=== PATIENT | male | born 1955 | race Caucasian/White ===

== ENCOUNTER → 2020-06-10 11:26 | Outpatient (CLI) | payer OTHER, SELFPAY ==
[2020-06-12 08:21] LABS: COVID19 Sendout Not Detected (Not Detect)
== END ==
PROVIDERS: Visit Provider Physician Assistant
DX: Z11.59 Encounter for screening for other viral diseases (principal)
CPT/HCPCS: 87635

== ENCOUNTER → 2020-06-13 10:50 | Outpatient (CLI) | payer OTHER, SELFPAY ==
--- NOTE | 2020-06-19 08:22 | PM.PFT.1 ---
Pulmonary Function Test Referral & Results Date Patient Seen: 06/13/20 Requesting provider: Iwona Guevara Results: The spirometry demonstrates an FVC of 3.19 L which is 81% of predicted. The FEV1 was measured at 2.10 L which is 72% of predicted. The FEV1/FVC ratio was 66 which is 88% of predicted. Following the administration of bronchodilator there was a 26% improvement in FEF 25-75% Lung volumes show an SVC of 3.09 L which is 76% of predicted. The diffusing capacity was measured at 14.34 which is 53% go to end of sentence my no hemoglobin of predicted. The maximum voluntary ventilation was reduced Interpretation: This study demonstrates perhaps mild obstructive lung disease based on reduction FEV1 and FEV1/FVC ratio. There is evidence of minimal improvement following bronchodilator primarily small airways based on improvement in FEF 25-75% as above There is also evidence of mild restrictive lung disease based on reduction SVC There is also significant reduction in diffusing capacity suggesting significant disease at the capillary alveolar level Clinical correlation suggested
== END ==
PROVIDERS: PCP Student in an Organized Health Care Education/Training Program; Referring Provider Student in an Organized Health Care Education/Training Program; Visit Provider Student in an Organized Health Care Education/Training Program
DX: J44.9 Chronic obstructive pulmonary disease, unspecified (principal); F17.210 Nicotine dependence, cigarettes, uncomplicated
CPT/HCPCS: 94060; 94726; 94729

== ENCOUNTER → 2020-06-18 13:23 | Outpatient (CLI) | payer OTHER, SELFPAY ==
--- NOTE | 2020-06-18 | DI.RAD.S_ITS ---
PROCEDURE: XR CHEST 2V INDICATIONS: Chronic obstructive pulmonary disease, unspecified TECHNIQUE: 2 views of the chest were acquired. COMPARISON: [facility], , CHEST 1 VIEW, 03/13/2017, 17:38. FINDINGS: Surgical changes and devices: None. Lungs and pleura: Lungs are clear. No pleural effusions or pneumothorax. Mediastinum: Mediastinal contours are normal. Heart size is normal. Bones and chest wall: No suspicious bony abnormalities. Soft tissues appear unremarkable. IMPRESSION: Normal for age except for large lung volumes, no pneumonia seen, no neoplasm identified. Dictated by: Chintan Chavarria M.D. on 06/18/2020 at 14:35 Approved by: Chintan Chavarria M.D. on 06/18/2020 at 14:35
== END ==
PROVIDERS: PCP Student in an Organized Health Care Education/Training Program; Referring Provider Student in an Organized Health Care Education/Training Program; Visit Provider Student in an Organized Health Care Education/Training Program
DX: J44.9 Chronic obstructive pulmonary disease, unspecified (principal)
CPT/HCPCS: 71046

== ENCOUNTER 2022-11-07 11:46 | Emergency (ER) | payer OTHER, SELFPAY ==
[2022-11-07] VITALS (60 sets, daily range): BP systolic 53–177; BP diastolic 49–99; PULSE 62–85; RESP 9–25; TEMP 36.9; O2SAT 91–100; BMI 35.9
--- NOTE | 2022-11-07 11:57 | DI.CT.S_ITS ---
PROCEDURE: CT ANGIO CHEST ABDOMEN PELVIS INDICATIONS: Hypotensive, known abdominal aortic aneurysm right leg pain TECHNIQUE: Precontrast 5 mm thick sections acquired from the lung apices to the iliac crests. After the administration of intravenous contrast, 2.5 mm thick sections again acquired from the lung apices to the iliac crests. Maximum intensity projection (MIP) oblique sagittal and coronal reformats were then acquired. For radiation dose reduction, the following was used: automated exposure control. COMPARISON: [facility], CT, ANGIO ABD PELVIS W/WO CONTRAST (PNL), 09/28/2011, 12:07. FINDINGS: Image quality: Excellent. AORTA: The thoracic aorta is normal in course and caliber. No dissection. No aneurysmal dilatation. Scattered atherosclerotic calcifications are present. There is mild aneurysmal dilatation of the distal abdominal aorta measuring approximately 3.1 cm in diameter. Associated intramural hematomas. No evidence for dissection. Dense atherosclerotic calcifications are seen. Redemonstration of postsurgical changes of prior aorto bi-iliac stent. No extra luminal extravasation of contrast. No periaortic inflammatory changes. Overall, this has decreased in size compared to the prior exam. Celiac trunk and SMA appear patent. Inferior mesenteric artery is not visualized. Bilateral lower lower extremity arteries: Scattered atherosclerotic calcifications of the bilateral common femoral arteries extending through the imaged portions of the leg. 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 There is a surrounding hematoma. This is noted in close proximity to the junction with the distal external iliac artery. There is relatively diminished opacification of the superficial femoral and profunda femoral arteries extending towards the trifurcation. Normal opacification noted for comparison within the left lower extremity arteries. Additionally, there is a small aneurysm measuring approximately 2.5 x 1.8 cm at the junction of the distal left external iliac and common femoral artery. There is superficial subcutaneous soft tissue edema and mild skin thickening of the right lower extremity predominantly at the level of the knees and distally. CHEST: Lungs and pleura: No acute airspace opacities. Upper lobe predominant pulmonary emphysematous changes. Bibasilar atelectasis. No pneumothorax or pleural effusion. No pleural effusions or pneumothorax. Central and peripheral airways are patent and normal in caliber. Mediastinum: Heart size is enlarged. Coronary atherosclerotic vascular calcifications are noted. No pericardial effusion. No mediastinal or hilar adenopathy by size criteria. Central pulmonary arteries are normal in size. Esophagus is normal in caliber. No hiatal hernias. Bones and chest wall: No axillary adenopathy by size criteria. Thyroid gland is unremarkable . No suspicious bony lesions. No vertebral body compression fractures. ABDOMEN: Vasculature: Celiac trunk and mesenteric arteries are patent. Renal arteries are also patent. Solid organs: Liver is normal in size and enhancement. Gallbladder is surgically absent . Biliary system is non dilated. Physiologic dilatation of the common bile duct post cholecystectomy. No pancreatic ductal dilatation. Pancreas enhances normally. Spleen is normal in size and enhancement. No adrenal nodules. Both kidneys are normal in size and enhancement, without hydronephrosis. Bilateral renal hypodensities likely representing cysts. Peritoneum and bowel: No free fluid or air. Bowel loops are normal in caliber and wall thickness. Colonic diverticulosis without acute diverticulitis. Nodes and vessels: No retroperitoneal or mesenteric adenopathy by size criteria. Inferior vena cava is normal in morphology. Miscellaneous: There is a bowel containing right ventral abdominal wall hernia without evidence for obstruction proximally. This is seen at the level of the mid abdomen. PELVIS: Genitourinary: Bladder wall thickness is normal. Miscellaneous: No inguinal hernias or adenopathy. No ventral hernias. Bones: No acute vertebral body compression fractures. Multilevel spondylitic changes throughout the imaged spine. No suspicious osseous lesions. IMPRESSION: 1. 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 There is opacification of the common femoral, superficial femoral, profundus femoral and popliteal arteries as well as the trifurcation. This measures approximately 5.0 x 5.4 x 7.4 cm. 2. 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 This measures approximately 2.5 x 1.8 cm. This has increased in size compared to 2012. 3. Mild aneurysmal dilatation of the distal abdominal aorta with stable postsurgical repair of aorto bi-iliac graft. No evidence for dissection. 4. Other chronic findings as described above. Findings were discussed with Dr. Sotelo at 1310 hrs Dictated by: Cyril Valverde M.D. on 11/07/2022 at 12:46 Approved by: Cyril Valverde M.D. on 11/07/2022 at 13:12
[2022-11-07] MEDS: SODIUM CHLORIDE 0.9% 1,000 ML 999 ML IV (12:00)
[2022-11-07] MEDS: HYDROMORPHONE 0.5 MG INJ IV ×2 (12:14→16:05)
[2022-11-07] MEDS: SODIUM CHLORIDE 0.9% 1,000 ML 1000 ML IV (12:15)
[2022-11-07 12:16] LABS: Alanine Aminotransferase 28 IU/L (<50); Albumin 3.8 g/dL (3.5-5.0); Albumin Globulin Ratio 1.2 (1.0-2.8); Alkaline Phosphatase 105 U/L (38-126); Aspartate Aminotransferase 26 IU/L (17-59); BUN Creatinine Ratio 12.2 (6-22); Bilirubin Total 0.4 mg/dL (0.2-1.3); Blood Urea Nitrogen 21 mg/dL (9-20); Calcium 9.2 mg/dL (8.4-10.2); Carbon Dioxide 27 mmol/L (22-32); Chloride 102 mmol/L (98-107); Creatine Kinase 79 U/L (55-170); Estimated Glomerular Filt Rate 43 mL/min (>60); Globulin 3.1 g/dL (1.7-4.1); Glucose 122 mg/dL (80-110); HEMOLYSIS < 15 (0-50); Lipase 81 U/L (23-300); Sodium 138 mmol/L (137-145); Total Protein 6.9 g/dL (6.3-8.2)
[2022-11-07 12:26] LABS: Add Manual Diff / Slide Review NO; Basophils Absolute Auto 100 /uL (0-100); Basophils Percent Auto 1.1 % (0-2); Eosinophils Absolute Auto 400 /uL (0-450); Hematocrit 42.4 % (41-53); Hemoglobin 14.4 g/dL (13.5-17.5); Lymphocytes Absolute Auto 3700 /uL (1100-4500); Mean Corpuscular HGB Conc 34.1 % (30-36); Mean Corpuscular Hemoglobin 31.3 PG (26-34); Mean Corpuscular Volume 91.9 fL (80-100); Monocytes Absolute Auto 1000 /uL (0-900); Monocytes Percent Auto 9.4 % (3-14); Neutrophils Absolute Auto 5300 /uL (1500-7000); Neutrophils Percent Auto 50.5 % (50-75); Platelet Count 229 X10^3/uL (150-400); Red Blood Cell Count 4.61 X10^6/uL (4.5-5.9); Red Cell Distribution Width 15.8 % (11.6-14.8); Troponin I 0.019 ng/mL (0.01-0.034); White Blood Cell Count 10.6 X10^3/uL (4.5-11.0)
--- NOTE | 2022-11-07 12:28 | ED_ITS ---
HPI - Extremity Problem General Chief complaint: Extremity Problem,Nontraumatic Stated complaint: R groin pain / hypotension Time Seen by Provider: 11/07/22 11:56 History of Present Illness HPI Narrative: Patient is a 67-year-old male history coronary artery disease with stents, hypertension hyperlipidemia, COPD, aortobifemoral bypass, crescendo angina, paroxysmal atrial fibrillation on Pradaxa, cardiomyopathy presents today with severe right-sided leg pain after working in the yard. He said he was working in the yard with a vibrating rototill, when into get something to drink had sudden onset severe right-sided leg pain had to sit down. He got very lightheaded diaphoretic EMS reports an initial blood pressure in the 40s. He denies any chest pain or palpitations. Blood pressure improved when he laid down he continues to have severe right-sided groin pain. Patient can not remember if he took his medications this morning or not he did not want to double up. It is unclear when he last took Pradaxa just presumed that he took it last night Related Data Home Medications Medication Instructions Recorded Confirmed clopidogrel 75 mg tablet 75 mg PO DAILY 11/07/22 11/07/22 dabigatran etexilate 150 mg capsule 150 mg PO BID 11/07/22 11/07/22 esomeprazole magnesium 20 mg 20 mg PO DAILY 11/07/22 11/07/22 tablet,delayed release metoprolol succinate 25 mg 25 mg PO DAILY 11/07/22 11/07/22 tablet,extended release 24 hr nitroglycerin 0.4 mg sublingual 0.4 mg sublingual PRN PRN Chest 11/07/22 11/07/22 tablet (Nitrostat) Pain rosuvastatin 40 mg tablet 40 mg PO DAILY 11/07/22 11/07/22 tamsulosin 0.4 mg capsule 0.4 mg PO DAILY 11/07/22 11/07/22 tiotropium 2.5 mcg-olodaterol 2.5 1 inh inhalation WEEKLY 11/07/22 11/07/22 mcg/actuation mist for inhalation (Stiolto Respimat) torsemide 20 mg tablet 20 mg PO DAILY 11/07/22 11/07/22 Allergies Allergy/AdvReac Type Severity Reaction Status Date / Time oxycodone [OXYCODONE] AdvReac Severe VOMITED Verified 11/07/22 13:44 BLACK STUFF Review of Systems Review of Systems ROS Unobtainable: All systems reviewed & are unremarkable except as noted in HPI and below Exam Initial Vital Signs Initial Vital Signs: Vital Signs Blood Pressure 133/91 H 11/07/22 11:49 GENERAL: Alert pleasant 67-year-old male slightly pale appears uncomfortable HEENT: Head atraumatic,EOMI, pupils reactive, face symmetric, [moist] mucous membranes CARDIOVASCULAR: Regular rate and rhythm without murmurs, rubs or gallops. RESPIRATORY: Breath sounds equal bilaterally, no wheezes rales or rhonchi. ABDOMEN: Soft, nontender. Normoactive bowel sounds all 4 quadrants. No guarding or rebound. EXTREMITIES: Normal range of motion, no clubbing or edema. Neurovascularly intact Pulsatile mass found in right femoral area, unable to palpate or Doppler right distal pedal pulse Left leg is within normal limits NEUROLOGICAL: Alert and oriented x4.Normal gait and speech. SKIN: Warm, dry, no laceration, no petechiae, no rashes or lesions. Course Orders Ordered: ED Orders 11/07/22 11:48 Complete Blood Count AUTO DIFF Stat Comprehensive Metabolic Panel Stat Lactate (Lactic Acid) Stat Lipase Stat Troponin & CK Cardiac Panel Stat 11/07/22 11:57 CT angio chest abdomen pelvis Stat 11/07/22 12:06 EKG-12 Lead Stat 11/07/22 12:30 Packed Cells Stat Type and Screen Stat 11/07/22 12:32 COVID19 -Nasal RAPID Stat 11/07/22 14:15 Hemoglobin and Hematocrit Stat Discontinued Medications Hydromorphone HCl (Hydromorphone 0.5 Mg Inj) 0.5 mg IV NOW ONE Stop: 11/07/22 12:11 Last Admin: 11/07/22 12:14 Dose: 0.5 mg Documented By: CTS Hydromorphone HCl (Hydromorphone 1 Mg Inj) 1 mg IV NOW ONE Stop: 11/07/22 13:24 Last Admin: 11/07/22 13:33 Dose: 1 mg Documented By: CTS Hydromorphone HCl (Hydromorphone 1 Mg Inj) 1 mg IV NOW ONE Stop: 11/07/22 14:53 Last Admin: 11/07/22 15:03 Dose: 1 mg Documented By: CTS Hydromorphone HCl (Hydromorphone 0.5 Mg Inj) 0.5 mg IV NOW ONE Stop: 11/07/22 16:03 Last Admin: 11/07/22 16:05 Dose: 0.5 mg Documented By: YOLANDA Sodium Chloride (Normal Saline 0.9%) 1,000 mls @ 150 mls/hr IV CONT RICK Last Infusion: 11/07/22 13:02 Dose: 0 mls/hr Documented By: Admin: 11/07/22 12:00 Dose: 999 mls/hr Documented By: YOLANDA Sodium Chloride (Normal Saline 0.9%) 1,000 mls @ 1,000 mls/hr IV BOLUS ONE Stop: 11/07/22 12:59 Last Infusion: 11/07/22 13:01 Dose: 0 mls/hr Documented By: Admin: 11/07/22 12:15 Dose: 1,000 mls/hr Documented By: YOLANDA Vital Signs Vital signs: Vital Signs - 8 hr 11/07/22 12:36 11/07/22 11:49 11/07/22 11:50 Temperature 98.4 F Pulse Rate 68 85 Respiratory Rate 16 16 Blood Pressure 53/49 L 133/91 H Pulse Oximetry 99 100 Oxygen Delivery Method Room Air 11/07/22 11:55 11/07/22 12:00 11/07/22 12:05 Temperature Pulse Rate 81 82 79 Respiratory Rate 14 15 19 Blood Pressure Pulse Oximetry 99 100 Oxygen Delivery Method 11/07/22 12:10 11/07/22 12:15 11/07/22 12:17 Temperature Pulse Rate 79 81 Respiratory Rate 25 H 18 Blood Pressure 80/51 L Pulse Oximetry 100 100 Oxygen Delivery Method 11/07/22 12:29 11/07/22 12:30 11/07/22 12:31 Temperature Pulse Rate 67 66 67 Respiratory Rate 17 12 12 Blood Pressure Pulse Oximetry 100 100 100 Oxygen Delivery Method 11/07/22 12:31 11/07/22 12:35 11/07/22 12:35 Temperature Pulse Rate 67 Respiratory Rate 12 Blood Pressure 140/84 148/83 H Pulse Oximetry 100 Oxygen Delivery Method 11/07/22 12:40 11/07/22 12:40 11/07/22 12:45 Temperature Pulse Rate 70 Respiratory Rate 13 Blood Pressure 146/69 H 152/84 H Pulse Oximetry 100 Oxygen Delivery Method 11/07/22 12:45 11/07/22 12:50 11/07/22 12:51 Temperature Pulse Rate 71 72 72 Respiratory Rate 15 19 18 Blood Pressure Pulse Oximetry 100 98 97 Oxygen Delivery Method 11/07/22 12:51 11/07/22 12:55 11/07/22 12:55 Temperature Pulse Rate 73 Respiratory Rate 18 Blood Pressure 153/99 H 165/84 H Pulse Oximetry 98 Oxygen Delivery Method 11/07/22 13:00 11/07/22 13:01 11/07/22 13:01 Temperature Pulse Rate 65 65 Respiratory Rate 24 15 Blood Pressure 159/97 H Pulse Oximetry 98 98 Oxygen Delivery Method 11/07/22 13:05 11/07/22 13:05 11/07/22 13:10 Temperature Pulse Rate 64 64 Respiratory Rate 11 L 16 Blood Pressure 177/79 H Pulse Oximetry 97 99 Oxygen Delivery Method 11/07/22 13:11 11/07/22 13:11 11/07/22 13:15 Temperature Pulse Rate 62 63 Respiratory Rate 16 11 L Blood Pressure 149/64 H Pulse Oximetry 97 96 Oxygen Delivery Method 11/07/22 13:16 11/07/22 13:16 11/07/22 13:20 Temperature Pulse Rate 63 Respiratory Rate 11 L Blood Pressure 169/75 H 154/79 H Pulse Oximetry 94 Oxygen Delivery Method 11/07/22 13:20 11/07/22 13:25 11/07/22 13:25 Temperature Pulse Rate 70 66 Respiratory Rate 16 12 Blood Pressure 151/73 H Pulse Oximetry 95 97 Oxygen Delivery Method 11/07/22 13:30 11/07/22 13:31 11/07/22 13:31 Temperature Pulse Rate 66 68 Respiratory Rate 10 L 12 Blood Pressure 166/77 H Pulse Oximetry 96 95 Oxygen Delivery Method 11/07/22 13:35 11/07/22 13:35 11/07/22 13:40 Temperature Pulse Rate 65 68 Respiratory Rate 9 L 10 L Blood Pressure 133/60 Pulse Oximetry 92 92 Oxygen Delivery Method Room Air 11/07/22 13:40 11/07/22 13:45 11/07/22 13:45 Temperature Pulse Rate 63 Respiratory Rate 11 L Blood Pressure 129/69 134/70 Pulse Oximetry 91 Oxygen Delivery Method 11/07/22 13:50 11/07/22 13:50 11/07/22 13:55 Temperature Pulse Rate 69 66 Respiratory Rate 10 L 9 L Blood Pressure 138/67 Pulse Oximetry 96 95 Oxygen Delivery Method 11/07/22 13:55 11/07/22 14:00 11/07/22 14:00 Temperature Pulse Rate 64 Respiratory Rate 10 L Blood Pressure 149/74 H 140/66 Pulse Oximetry 91 Oxygen Delivery Method 11/07/22 14:05 11/07/22 14:05 11/07/22 14:10 Temperature Pulse Rate 66 Respiratory Rate 11 L Blood Pressure 149/71 H 150/76 H Pulse Oximetry 95 Oxygen Delivery Method 11/07/22 14:10 11/07/22 14:15 11/07/22 14:15 Temperature Pulse Rate 73 72 Respiratory Rate 13 13 Blood Pressure 150/73 H Pulse Oximetry 97 97 Oxygen Delivery Method Room Air 11/07/22 14:20 11/07/22 14:20 11/07/22 14:25 Temperature Pulse Rate 71 Respiratory Rate 14 Blood Pressure 139/78 133/67 Pulse Oximetry 97 Oxygen Delivery Method 11/07/22 14:25 11/07/22 14:30 11/07/22 14:30 Temperature Pulse Rate 69 71 Respiratory Rate 12 16 Blood Pressure 137/69 Pulse Oximetry 95 99 Oxygen Delivery Method 11/07/22 14:35 11/07/22 14:36 11/07/22 14:36 Temperature Pulse Rate 69 67 Respiratory Rate 12 17 Blood Pressure 164/81 H Pulse Oximetry 98 97 Oxygen Delivery Method 11/07/22 14:40 11/07/22 14:40 11/07/22 14:45 Temperature Pulse Rate 70 Respiratory Rate 14 Blood Pressure 157/75 H 152/74 H Pulse Oximetry 98 Oxygen Delivery Method 11/07/22 14:45 11/07/22 14:50 11/07/22 14:50 Temperature Pulse Rate 69 70 Respiratory Rate 13 18 Blood Pressure 156/77 H Pulse Oximetry 98 98 Oxygen Delivery Method Room Air 11/07/22 14:55 11/07/22 14:55 11/07/22 15:00 Temperature Pulse Rate 71 Respiratory Rate 18 Blood Pressure 158/86 H 133/64 Pulse Oximetry 98 Oxygen Delivery Method 11/07/22 15:00 11/07/22 15:05 11/07/22 15:05 Temperature Pulse Rate 76 78 Respiratory Rate 15 12 Blood Pressure 133/71 Pulse Oximetry 99 99 Oxygen Delivery Method 11/07/22 15:10 11/07/22 15:10 11/07/22 15:15 Temperature Pulse Rate 67 Respiratory Rate 13 Blood Pressure 125/69 126/70 Pulse Oximetry 95 Oxygen Delivery Method 11/07/22 15:15 11/07/22 15:20 11/07/22 15:20 Temperature Pulse Rate 73 70 Respiratory Rate 13 13 Blood Pressure 125/76 Pulse Oximetry 96 95 Oxygen Delivery Method 11/07/22 15:25 11/07/22 15:25 11/07/22 15:30 Temperature Pulse Rate 79 Respiratory Rate 15 Blood Pressure 113/68 111/65 Pulse Oximetry 97 Oxygen Delivery Method 11/07/22 15:30 11/07/22 15:35 11/07/22 15:35 Temperature Pulse Rate 81 83 Respiratory Rate 23 14 Blood Pressure 95/64 Pulse Oximetry 97 99 Oxygen Delivery Method 11/07/22 15:40 11/07/22 15:40 11/07/22 15:45 Temperature Pulse Rate 78 Respiratory Rate 14 Blood Pressure 105/66 110/68 Pulse Oximetry 98 Oxygen Delivery Method 11/07/22 15:45 11/07/22 15:50 11/07/22 15:50 Temperature Pulse Rate 81 75 Respiratory Rate 17 11 L Blood Pressure 112/67 Pulse Oximetry 98 97 Oxygen Delivery Method Room Air 11/07/22 15:53 11/07/22 15:55 Temperature Pulse Rate 78 Respiratory Rate 16 Blood Pressure 114/70 Pulse Oximetry Oxygen Delivery Method MDM - Extremity (Nontraumatic) Lab Data 11/07/22 14:15 11/07/22 11:48 Labs: Lab Results 11/07/22 11/07/22 11/07/22 Range/Units 11:48 11:48 11:48 WBC 10.6 (4.5-11.0) X10^3/uL RBC 4.61 (4.5-5.9) X10^6/uL Hgb 14.4 (13.5-17.5) g/dL Hct 42.4 (41-53) % MCV 91.9 (80-100) fL MCH 31.3 (26-34) PG MCHC 34.1 (30-36) % RDW 15.8 H (11.6-14.8) % Plt Count 229 (150-400) X10^3/uL Neut % (Auto) 50.5 (50-75) % Lymph % (Auto) 35.0 (25-40) % [place] % (Auto) 9.4 (3-14) % Eos % (Auto) 4.0 (2-4) % Baso % (Auto) 1.1 (0-2) % Neut # (Auto) 5300 (3208-2997) /uL Lymph # (Auto) 3700 (5384-4591) /uL [place] # (Auto) 1000 H (0-900) /uL Eos # (Auto) 400 (0-450) /uL Baso # (Auto) 100 (0-100) /uL Sodium 138 (137-145) mmol/L Potassium 4.0 (3.4-5.1) mmol/L Chloride 102 (98-107) mmol/L Carbon Dioxide 27 (22-32) mmol/L BUN 21 H (9-20) mg/dL Creatinine 1.72 H (0.66-1.25) mg/dL Estimated GFR 43 L (>60) mL/min BUN/Creatinine Ratio 12.2 (6-22) Glucose 122 H (80-110) mg/dL Lactate 4.5 H* (0.7-2.1) mmol/L Calcium 9.2 (8.4-10.2) mg/dL Total Bilirubin 0.4 (0.2-1.3) mg/dL AST 26 (17-59) IU/L ALT 28 (<50) IU/L Alkaline Phosphatase 105 (38-126) U/L Total Creatine Kinase 79 (55-170) U/L CK-MB (CK-2) TNP CK-MB (CK-2) Rel Index TNP Troponin I 0.019 (0.01-0.034) ng/mL Total Protein 6.9 (6.3-8.2) g/dL Albumin 3.8 (3.5-5.0) g/dL Globulin 3.1 (1.7-4.1) g/dL Albumin/Globulin Ratio 1.2 (1.0-2.8) Lipase 81 (23-300) U/L SARS-CoV-2 (PCR) (Negative) Blood Type Antibody Screen Crossmatch 11/07/22 11/07/22 11/07/22 Range/Units 12:30 12:32 14:15 WBC (4.5-11.0) X10^3/uL RBC (4.5-5.9) X10^6/uL Hgb (13.5-17.5) g/dL Hct (41-53) % MCV (80-100) fL MCH (26-34) PG MCHC (30-36) % RDW (11.6-14.8) % Plt Count (150-400) X10^3/uL Neut % (Auto) (50-75) % Lymph % (Auto) (25-40) % Berrien % (Auto) (3-14) % Eos % (Auto) (2-4) % Baso % (Auto) (0-2) % Neut # (Auto) (6864-8053) /uL Lymph # (Auto) (9575-4900) /uL Berrien # (Auto) (0-900) /uL Eos # (Auto) (0-450) /uL Baso # (Auto) (0-100) /uL Sodium (137-145) mmol/L Potassium (3.4-5.1) mmol/L Chloride (98-107) mmol/L Carbon Dioxide (22-32) mmol/L BUN (9-20) mg/dL Creatinine (0.66-1.25) mg/dL Estimated GFR (>60) mL/min BUN/Creatinine Ratio (6-22) Glucose (80-110) mg/dL Lactate 1.4 (0.7-2.1) mmol/L Calcium (8.4-10.2) mg/dL Total Bilirubin (0.2-1.3) mg/dL AST (17-59) IU/L ALT (<50) IU/L Alkaline Phosphatase (38-126) U/L Total Creatine Kinase (55-170) U/L CK-MB (CK-2) CK-MB (CK-2) Rel Index Troponin I (0.01-0.034) ng/mL Total Protein (6.3-8.2) g/dL Albumin (3.5-5.0) g/dL Globulin (1.7-4.1) g/dL Albumin/Globulin Ratio (1.0-2.8) Lipase (23-300) U/L SARS-CoV-2 (PCR) Negative (Negative) Blood Type O Negative Antibody Screen Negative Crossmatch See Detail 04/01/23 Range/Units 14:15 WBC (4.5-11.0) X10^3/uL RBC (4.5-5.9) X10^6/uL Hgb 12.7 L (13.5-17.5) g/dL Hct 37.6 L (41-53) % MCV (80-100) fL MCH (26-34) PG MCHC (30-36) % RDW (11.6-14.8) % Plt Count (150-400) X10^3/uL Neut % (Auto) (50-75) % Lymph % (Auto) (25-40) % Berrien % (Auto) (3-14) % Eos % (Auto) (2-4) % Baso % (Auto) (0-2) % Neut # (Auto) (6121-3424) /uL Lymph # (Auto) (5058-7142) /uL Berrien # (Auto) (0-900) /uL Eos # (Auto) (0-450) /uL Baso # (Auto) (0-100) /uL Sodium (137-145) mmol/L Potassium (3.4-5.1) mmol/L Chloride (98-107) mmol/L Carbon Dioxide (22-32) mmol/L BUN (9-20) mg/dL Creatinine (0.66-1.25) mg/dL Estimated GFR (>60) mL/min BUN/Creatinine Ratio (6-22) Glucose (80-110) mg/dL Lactate (0.7-2.1) mmol/L Calcium (8.4-10.2) mg/dL Total Bilirubin (0.2-1.3) mg/dL AST (17-59) IU/L ALT (<50) IU/L Alkaline Phosphatase (38-126) U/L Total Creatine Kinase (55-170) U/L CK-MB (CK-2) CK-MB (CK-2) Rel Index Troponin I (0.01-0.034) ng/mL Total Protein (6.3-8.2) g/dL Albumin (3.5-5.0) g/dL Globulin (1.7-4.1) g/dL Albumin/Globulin Ratio (1.0-2.8) Lipase (23-300) U/L SARS-CoV-2 (PCR) (Negative) Blood Type Antibody Screen Crossmatch Imaging Data CT scan - chest: Radiologist's Impression: PROCEDURE:? CT ANGIO CHEST ABDOMEN PELVIS ? INDICATIONS:? Hypotensive, known abdominal aortic aneurysm right leg pain ? TECHNIQUE:? Precontrast 5 mm thick sections acquired from the lung apices to the iliac cre sts.? After the administration of intravenous contrast, 2.5 mm thick sections again acquired from the lung apices to the iliac crests.? Maximum intensity projection (MIP) oblique sagittal and coronal reformats were then acquired.? For radiation dose reduction, the following was used:? automated exposure control.? ? COMPARISON:? [facility], CT, ANGIO ABD PELVIS W/WO CONTRAST (PNL), 09/28/2011, 12:07. ? FINDINGS:? Image quality:? Excellent.? ? AORTA:? The thoracic aorta is normal in course and caliber.? No dissection.? No aneurysmal dilatation.? Scattered atherosclerotic calcifications are present. There is mild aneurysmal dilatation of the distal abdominal aorta measuring approximately 3.1 cm in diameter.? Associated intramural hematomas.? No evidence for dissection.? Dense atherosclerotic calcifications are seen.? Redemonstration of postsurgical changes of prior aorto bi-iliac stent.? No extra luminal extravasation of contrast.? No periaortic inflammatory changes.? Overall, this has decreased in size compared to the prior exam.? Celiac trunk and SMA appear patent.? Inferior mesenteric artery is not visualized. ? Bilateral lower lower extremity arteries: ? Scattered atherosclerotic calcifications of the bilateral common femoral arteries extending through the imaged portions of the leg.? There is a large proximal common femoral arterial aneurysm measuring approximately 5.0 x 5.4 cm in axial transverse dimension and approximately 7.4 cm in longitudinal dimension.? There is a surrounding hematoma.? This is noted in close proximity to the junction with the distal exte rnal iliac artery.? There is relatively diminished opacification of the superficial femoral and profunda femoral arteries extending towards the trifurcation.? Normal opacification noted for comparison within the left lower extremity arteries.? Additionally, there is a small aneurysm measuring approximately 2.5 x 1.8 cm at the junction of the distal left external iliac and common femoral artery. ? There is superficial subcutaneous soft tissue edema and mild skin thickening of the right lower extremity predominantly at the level of the knees and distally. ? ? CHEST:? Lungs and pleura:? No acute airspace opacities.? Upper lobe predominant pulmonary emphysematous changes.? Bibasilar atelectasis.? No pneumothorax or pleural effusion.? No pleural effusions or pneumothorax.? Central and peripheral airways are patent and normal in caliber.? ? Mediastinum:? Heart size is enlarged. Coronary atherosclerotic vascular calcifications are noted. ? No pericardial effusion.? No mediastinal or hilar adenopathy by size criteria.? Central pulmonary arteries are normal in size.? Esophagus is normal in caliber.? No hiatal hernias.? ? Bones and chest wall:? No axillary adenopathy by size criteria.? Thyroid gland is unremarkable .? No suspicious bony lesions.? No vertebral body compression fractures.? ? ? ABDOMEN:? Vasculature:? Celiac trunk and mesenteric arteries are patent.? Renal arteries are also patent.? ? Solid organs:? Liver is normal in size and enhancement.? Gallbladder is surgically absent .? Biliary system is non dilated.? Physiologic dilatation of the common bile duct post cholecystectomy.? No pancreatic ductal dilatation.? Pancreas enhances normally.? Spleen is normal in size and enhancement.? No adrenal nodules.? Both kidneys are normal in size and enhancement, without hydronephrosis.? Bilateral renal hypodensities likely representing cysts. ? Peritoneum and bowel:? No free fluid or air.? Bowel loops are normal in caliber and wall thickness.? Colonic diverticulosis without acute diverticulitis. ? Nodes and vessels:? No retroperitoneal or mesenteric adenopathy by size crite néstor.? Inferior vena cava is normal in morphology.? ? Miscellaneous:? There is a bowel containing right ventral abdominal wall hernia without evidence for obstruction proximally.? This is seen at the level of the mid abdomen. ? ? PELVIS:? Genitourinary:? Bladder wall thickness is normal.? ? Miscellaneous:? No inguinal hernias or adenopathy.? No ventral hernias.? ? Bones:? No acute vertebral body compression fractures. Multilevel spondylitic changes throughout the imaged spine.? No suspicious osseous lesions. ? ? IMPRESSION:? ? 1. 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 There is opacification of the common femoral, superficial femoral, profundus femoral and popliteal arteries as well as the trifurcation.? This measures approximately 5.0 x 5.4 x 7.4 cm. ? 2. Small aneurysm of the proximal left common femoral artery near the junction with the distal iliac artery.? This measures approximately 2.5 x 1.8 cm.? This has increased in size compared to 2012. ? 3. Mild aneurysmal dilatation of the distal abdominal aorta with stable postsurgical repair of aorto bi-iliac graft.? No evidence for dissection. ? 4. Other chronic findings as described above. ? Findings were discussed with Dr. Sotelo at 1310 hrs ? Dictated by: Cyril Valverde M.D. on 11/07/2022 at 12:46 ECG Data Interpretation: Normal sinus rhythm rate 80 ND interval 160 QRS 76 QTC 449 significant T-wave inversion noted in V2 V3 without ST elevations or depressions. This is new from previous EKG in 2016. He apparently had stents placed in 2020 at [facility]. MDM Narrative Medical decision making narrative: Patient 67-year-old male with history of coronary artery disease known aneurysm with repair and s presenting today with severe right groin pain. He has a palpable femoral pulsatile mass. Concern for femoral artery aneurysm. Patient received Dilaudid for pain blood pressure decreased into the 80s but quickly came back up. CT confirms femoral artery aneurysm with surrounding hematoma measuring 5.0 x 5.4 x 7.4 cm. Patient blood work is relatively unremarkable except for creatinine of 1.72 and lactate 4.5. H and H is 14 and 42. Pain is well-controlled with Dilaudid. 1345 Dr. Ford Avalos from [facility] vascular surgery has reviewed images agrees that this needs to be addressed today however any vascular surgeon could do it I recommend trying other places if not available then call him. 13:53 Dr. Funes, vascular surgery at [facility] updated patient's symptoms test results awaiting for images to be pushed so he can review but they do have a bed available. Dr. Bañuelos animal care service worker updated on patient's symptoms and test results Critical Care Time Critical Care Time Critical Care Time: Yes Total Critical Care Time: 45 Attestation: The high probability of a clinically significant, sudden or life threatening deterioration of the [cardiovascular] system(s) required my full and direct attention, intervention and personal management. The aggregate critical care time was [45] minutes. This time is in addition to time spent performing reported procedures but includes the following: [x] Data Review and interpretation [x] Patient assessment and monitoring of vital signs [x] Documentation [x] Medication orders and management Discharge Plan Departure Patient Disposition: [facility] Clinical Impression: Femoral artery aneurysm, right Prescriptions: No Action torsemide 20 mg tablet 20 mg PO DAILY clopidogrel 75 mg tablet 75 mg PO DAILY tamsulosin 0.4 mg capsule 0.4 mg PO DAILY Patient Comments: Take 1 capsule by mouth once a day No more refills until seen metoprolol succinate 25 mg tablet extended release 24 hr 25 mg PO DAILY rosuvastatin 40 mg tablet 40 mg PO DAILY dabigatran etexilate 150 mg capsule 150 mg PO BID Stiolto Respimat 2.5-2.5 mcg/actuation mist 1 inh INHALATION WEEKLY nitroglycerin [Nitrostat] 0.4 MG tablet, sublingual 0.4 mg Sublingual PRN PRN (Reason: Chest Pain) esomeprazole magnesium 20 mg Tablet,Delayed Release (Dr/Ec) 20 mg PO DAILY Referrals: Iwona Guevara MD [Primary Care Provider] -
[2022-11-07 12:36] LABS: Lactate (Lactic Acid) 4.5 mmol/L (0.7-2.1)
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
[2022-11-07 12:58] LABS: COVID19 -Nasal RAPID Negative (Negative)
--- NOTE | 2022-11-07 13:29 | PC.NURSE ---
In regards to xfer , faxed facesheet/covid results and pushed images [place], 'reina. Waiting on f/u.
[2022-11-07] MEDS: HYDROMORPHONE 1 MG INJ IV ×2 (13:33→15:03)
[2022-11-07 14:00] LABS: Reflexed Lactate in 2 Hours Y
[2022-11-07 14:23] LABS: Hematocrit 37.6 % (41-53); Hemoglobin 12.7 g/dL (13.5-17.5)
--- NOTE | 2022-11-07 14:23 | PC.NURSE ---
Received approval from [facility] for transfer and treatment to any accepting facility. [facility] has no bed availability but they will continue to monitor for any openings. Dr. Juan C Osuna is approving doctor. Spoke marcos/ Clarissa @ [facility].
[2022-11-07 14:34] LABS: Lactate 2HR (Lactic Acid Rflx) 1.4 mmol/L (0.7-2.1)
--- NOTE | 2022-11-07 16:17 | PC.NURSE ---
Pt transferred to [facility] via [facility]. Report called to [facility] RN in ICU, [facility].
== END 2022-11-07 16:19 | disposition short-term general hospital (02) ==
PROVIDERS: Emergency Provider Emergency Medicine; PCP Student in an Organized Health Care Education/Training Program
DX: I72.4 Aneurysm of artery of lower extremity (principal); I95.9 Hypotension, unspecified; Z20.822 Contact with and (suspected) exposure to COVID-19; Z95.5 Presence of coronary angioplasty implant and graft; I48.0 Paroxysmal atrial fibrillation; Z79.01 Long term (current) use of anticoagulants
CPT/HCPCS: 36415; 71275; 74174; 80053; 82550; 83605; 83690; 84484; 85014; 85018; 85025; 86850; 86900; 86901; 87635; 93005; 96361; 96374; 96376; 99285; 99291; 99292; C9803; J1170; Q9967

== ENCOUNTER → 2023-01-29 12:46 | Outpatient (CLI) | payer OTHER, SELFPAY ==
[2023-01-29 13:21] LABS: BUN Creatinine Ratio 11.2 (6-22); Blood Urea Nitrogen 19 mg/dL (9-20); Calcium 9.4 mg/dL (8.4-10.2); Carbon Dioxide 32 mmol/L (22-32); Chloride 97 mmol/L (98-107); Estimated Glomerular Filt Rate 43 mL/min (>60); Glucose 100 mg/dL (80-110); HEMOLYSIS < 15 (0-50); Potassium 3.7 mmol/L (3.4-5.1); Sodium 138 mmol/L (137-145)
[2023-01-29 13:29] LABS: Hematocrit 34.6 % (41-53); Hemoglobin 11.8 g/dL (13.5-17.5)
== END ==
PROVIDERS: PCP Family Medicine; Referring Provider Family Medicine; Visit Provider Family Medicine
DX: B95.62 Methicillin resistant Staphylococcus aureus infection as the cause of diseases classified elsewhere (principal); I50.9 Heart failure, unspecified; I25.119 Atherosclerotic heart disease of native coronary artery with unspecified angina pectoris
CPT/HCPCS: 80048; 85014; 85018